=== PATIENT | female | born 1985 | race Hispanic/Latino ===

== ENCOUNTER 2022-10-06 12:30 | Emergency (ER) | payer BC, MEDICAID ==
[~2022-10-06] VITALS: Ht 167.6 cm; Wt 90.7 kg
[2022-10-06] MEDS ORDERED: 0.9%NACL 1000ML 1,000 ML IV ONE (13:00)
[2022-10-06 13:13] LABS: BASOPHILS % (AUTO) 0.4 % (0.0-5.0); EOSINOPHILS % (AUTO) 1.2 % (0.0-8.0); HEMATOCRIT 42.4 % (36-48); LYMPHOCYTES % (AUTO) 26.6 % (21.0-51.0); MEAN CORPUSCULAR HEMOGLOBIN 27.9 pg (27.0-33.0); MEAN CORPUSCULAR HGB CONC 33.3 g/dL (32.0-36.0); MONOCYTES % (AUTO) 4.2 % (3.0-13.0); NEUTROPHILS % (AUTO) 67.4 % (40.0-77.0); PLATELET COUNT (AUTO) 284 K/uL (130-400); RED BLOOD CELL COUNT(AUTO) 5.05 MIL/uL (4.00-5.50); RED CELL DISTRIBUTION WIDTH 12.9 % (11.0-15.5)
[2022-10-06 13:30] LABS: APPEARANCE,URINE CLOUDY (CLEAR); BILIRUBIN,URINE NEGATIVE (NEGATIVE); COLOR,URINE YELLOW (YELLOW); GLUCOSE, URINE (UA) NEGATIVE (NEGATIVE); KETONES,URINE NEGATIVE (NEGATIVE); LEUKOCYTE ESTERASE ,URINE NEGATIVE Leu/uL (NEGATIVE); NITRATE,URINE NEGATIVE (NEGATIVE); OCCULT BLOOD,URINE NEGATIVE (NEGATIVE); PROTEIN,URINE 30 mg/dL (NEGATIVE); UROBILINOGEN,URINE 0.2 mg/dL (0.2-1.0)
[2022-10-06 13:39] LABS: CREATININE 0.7 mg/dL (0.5-1.5); POTASSIUM 3.4 mmol/L (3.5-5.1)
[2022-10-06 13:40] LABS: HCG,QUALITATIVE URINE NEGATIVE (NEGATIVE)
[2022-10-06 13:45] LABS: ALBUMIN 4.2 g/dL (3.5-5.0); TOTAL PROTEIN, SERUM 8.3 g/dL (6.0-8.3)
[2022-10-06 13:45] LABS: BACTERIA,URINE FEW /HPF (None Seen); MUCUS,URINE RARE LPF (None Seen); SQUAMOUS EPITHELIAL CELL,UR MANY /HPF (0-2)
[2022-10-06] MEDS ORDERED: ONDA4TAB10 PO (14:43)
[2022-10-06] MEDS ORDERED: IBUP-2070 PO (14:43)
[2022-10-06] MEDS ORDERED: PRED20TA3 PO (14:43)
[2022-10-06] MEDS ORDERED: ONDANSETRON 4MG INJ IVP ONE (15:00)
[2022-10-06 15:07] VITALS: BP 131/84
== END 2022-10-06 15:10 | disposition home or self-care (01) ==
LOC: EDH 12:30
DX: N39.0 Urinary tract infection, site not specified (principal); G51.0 Bell's palsy; Z20.822 Contact with and (suspected) exposure to COVID-19; Z90.49 Acquired absence of other specified parts of digestive tract
CPT/HCPCS: 99284; 96374; 87635; 96361; 80053; 85025; 87088; 87804 ×2; 81001; 81025; 36415; C9803; J7030; J2405

== ENCOUNTER 2022-10-09 13:56 | Emergency (ER) | payer BC, MEDICAID ==
[~2022-10-09] VITALS: Ht 167.6 cm; Wt 90.7 kg
[~2022-10-09 13:56] MED LIST: IBUP-2070 PO; ONDA4TAB10 PO; PRED20TA3 PO
[2022-10-09 13:57] VITALS: BP 154/97
[2022-10-09] MEDS ORDERED: MECLIZINE HCL 25 MG TABLET PO ONE (15:00)
[2022-10-09] MEDS ORDERED: MECL-262 PO (15:09)
[2022-10-09] MEDS ORDERED: ACYC400T20 PO (15:09)
== END 2022-10-09 15:31 | disposition home or self-care (01) ==
LOC: EDH 13:56
DX: G51.0 Bell's palsy (principal); R42 Dizziness and giddiness; Z79.899 Other long term (current) drug therapy; Z98.890 Other specified postprocedural states; Z90.710 Acquired absence of both cervix and uterus
CPT/HCPCS: 70450